=== PATIENT | male | born 1975 | race Caucasian/White ===

== ENCOUNTER → 2021-04-04 | Outpatient (CLI) | payer BC ==
--- NOTE | 2021-04-04 16:13 | KCIC ---
EXAM: Renal sonogram. HISTORY: Renal failure. TECHNIQUE: Sonographic imaging the kidneys and bladder was performed. COMPARISON: None. FINDINGS: The kidneys are normal in size. There are tiny simple appearing right renal cysts. There is echogenic renal parenchyma. There is no hydronephrosis. The prevoid bladder volume is 39 cc. There i s bladder wall thickening. The ureteral jets are not seen during the exam. IMPRESSION: 1. Echogenic renal parenchyma. This can be seen with medical renal disease. 2. Tiny simple appearing right renal cysts. 3. Bladder wall thickening. This can be seen with cystitis. Correlate with urinalysis. Electronically signed by: Lala Figueroa MD (04/04/2021 4:10 PM) [id number]
== END ==
LOC: KCIC US 15:11
PROVIDERS: ATTEND Family Medicine
DX: N28.1 Cyst of kidney, acquired (principal); N32.89 Other specified disorders of bladder; I12.9 Hypertensive chronic kidney disease with stage 1 through stage 4 chronic kidney disease, or unspecified chronic kidney disease; E11.22 Type 2 diabetes mellitus with diabetic chronic kidney disease; N17.9 Acute kidney failure, unspecified
CPT/HCPCS: 76770